=== PATIENT | male | born 1990 | race Caucasian/White ===

== ENCOUNTER 2016-10-10 15:45 | Emergency (ER) | payer SELFPAY ==
[2016-10-10] MEDS ORDERED: Clindamycin CAP* 150 MG PO ONE (16:31)
--- NOTE | 2016-10-10 16:34 | UC ---
[facility] Dental HPI - HPI Summary HPI Summary: 25 yo male with right upper dental pain and swelling x days no f/c - History of Current Complaint Chief Complaint: UCDentalProblem Stated Complaint: ORAL COMPLAINT Time Seen by Provider: 10/10/16 16:20 Hx Obtained From: Patient Onset/Duration: Gradual Onset, Lasting Days Severity: Moderate Pain Intensity: 4 Pain Scale Used: 0-10 Numeric Aggravating: Heat, Cold, Chewing Alleviating: OTC Meds Related History: Swelling - Allergies/Home Medications Allergies/Adverse Reactions: Allergies Allergy/AdvReac Type Severity Reaction Status Date / Time Penicillins Allergy Severe Anaphylatic Verified 10/10/16 16:08 Shock PMH/Surg Hx/FS Hx/Imm Hx Previously Healthy: Yes - Surgical History Surgical History: Yes Surgery Procedure, Year, and Place: Tonsillectomy - Family History Known Family History: Positive: Hypertension, Other - brother with myocarditis/ CHF - Social History Alcohol Use: Occasionally Substance Use Type: None Smoking Status (MU): Never Smoked Tobacco Review of Systems Constitutional: Negative Skin: Negative Eyes: Negative ENT: Dental Pain Respiratory: Negative Cardiovascular: Negative Gastrointestinal: Negative Genitourinary: Negative Motor: Negative Neurovascular: Negative Musculoskeletal: Negative Neurological: Negative Psychological: Negative All Other Systems Reviewed And Are Negative: Yes Physical Exam Triage Information Reviewed: Yes Appearance: Well-Appearing, No Pain Distress, Well-Nourished Vital Signs: Initial Vital Signs Temp 99.0 F 10/10/16 16:05 Pulse 93 10/10/16 16:05 Resp 16 10/10/16 16:05 BP 140/102 10/10/16 16:05 Pulse Ox 99 10/10/16 16:05 Vital Signs Reviewed: Yes Eyes: Positive: Conjunctiva Clear ENT: Positive: Hearing grossly normal. Negative: Nasal congestion, Nasal drainage, Trismus, Muffled/hoarse voice Dental Exam: Other - see image Neck: Positive: Supple, Nontender, No Lymphadenopathy Respiratory: Positive: Lungs clear, Normal breath sounds, No respiratory distress Cardiovascular: Positive: RRR, No Murmur. Negative: Tachycardia, Bradycardia Musculoskeletal: Positive: ROM Intact, No Edema Neurological: Positive: Alert Psychological Exam: Normal Skin Exam: Normal Dental Complaint Course/Dx - Differential Dx/Diagnosis Provider Diagnoses: dental abscess. elevated BP Discharge - Discharge Plan Condition: Stable Disposition: HOME Prescriptions: Clindamycin Cap(NF) [Clindamycin Cap 300 mg Cap(NF)] 300 mg PO QID #28 cap Patient Education Materials: Dental Abscess (ED) Referrals: Sam Corrigan PA [Physician Quantitative Developer] - Additional Instructions: I suspect you elevated BP is due to dental pain Get it rechecked with your provider ibuprofen for pain see dentist to er for new or worsening symptoms recheck in 2-3 days if not improved
[2016-10-10 16:38] VITALS: BP 142/98
== END 2016-10-10 16:42 | disposition home or self-care (01) ==
LOC: UCCORT 15:45
DX: K04.7 Periapical abscess without sinus (principal); R03.0 Elevated blood-pressure reading, without diagnosis of hypertension; Z88.0 Allergy status to penicillin
CPT/HCPCS: 99202; A9270-GY; G0463

== ENCOUNTER 2017-02-15 17:38 | Emergency (ER) | payer OTHER ==
[2017-02-15 18:40] VITALS: BP 138/89
[2017-02-15] MEDS ORDERED: Clindamycin CAP* 150 MG PO ONE ×2 (18:58→18:59)
--- NOTE | 2017-02-15 19:00 | UC ---
[facility] Dental HPI - HPI Summary HPI Summary: swelling right upper gum near first molar--no real pain however the tooth is broken and decayed - History of Current Complaint Chief Complaint: UCDentalProblem Stated Complaint: TOOTH PAIN Time Seen by Provider: 02/15/17 18:54 Hx Obtained From: Patient Onset/Duration: Sudden Onset, Lasting Days - 2, Worse Since - today Severity: Mild Aggravating Factor(s): Nothing Alleviating Factor(s): Nothing Related History: Previous Dental Care on Same Tooth, Swelling - Allergies/Home Medications Allergies/Adverse Reactions: Allergies Allergy/AdvReac Type Severity Reaction Status Date / Time Penicillins Allergy Severe Anaphylatic Verified 02/15/17 18:40 Shock PMH/Surg Hx/FS Hx/Imm Hx Previously Healthy: Yes - Surgical History Surgical History: Yes Surgery Procedure, Year, and Place: Tonsillectomy - Family History Known Family History: Positive: Hypertension, Other - brother with myocarditis/ CHF - Social History Occupation: Employed Full-time Lives: With Family Alcohol Use: Occasionally Substance Use Type: None Smoking Status (MU): Never Smoked Tobacco Review of Systems Constitutional: Negative Skin: Negative Eyes: Negative ENT: Dental Pain - swelling right upper gum Respiratory: Negative Cardiovascular: Negative Gastrointestinal: Negative Genitourinary: Negative Motor: Negative Neurovascular: Negative Musculoskeletal: Negative Neurological: Negative Psychological: Negative Is Patient Immunocompromised?: No All Other Systems Reviewed And Are Negative: Yes Physical Exam Triage Information Reviewed: Yes Appearance: Well-Appearing, No Pain Distress, Well-Nourished Vital Signs: Initial Vital Signs Temp 98.5 F 02/15/17 18:34 Pulse 96 02/15/17 18:34 Resp 18 02/15/17 18:34 BP 138/89 02/15/17 18:34 Pulse Ox 99 02/15/17 18:34 Vital Signs Reviewed: Yes Eye Exam: Normal Eyes: Positive: Conjunctiva Clear ENT Exam: Normal ENT: Positive: Normal ENT inspection, Hearing grossly normal, Pharynx normal, Dental tenderness - mild, Uvula midline. Negative: Nasal congestion, Nasal drainage, Tonsillar swelling, Tonsillar exudate, Trismus, Hoarse voice Dental Exam: Normal Dental: Positive: Gross Decay/Caries @ - right first milar, Abscess @ - right upper gum Neck exam: Normal Neck: Positive: Supple, Nontender, No Lymphadenopathy Respiratory Exam: Normal Respiratory: Positive: Chest non-tender, No respiratory distress, No accessory muscle use Cardiovascular Exam: Normal Cardiovascular: Positive: RRR, Pulses Normal, Brisk Capillary Refill Musculoskeletal Exam: Normal Musculoskeletal: Positive: Strength Intact, ROM Intact, No Edema Neurological Exam: Normal Neurological: Positive: Alert, Muscle Tone Normal Psychological Exam: Normal Skin Exam: Normal Dental Complaint Course/Dx - Course Course Of Treatment: dental abscess, clyndamycin, ibuprofen follow with dentist this week - Differential Dx/Diagnosis Provider Diagnoses: Dental decay and abscess right upper first molar Discharge - Discharge Plan Condition: Stable Disposition: HOME Prescriptions: Clindamycin Cap(NF) [Clindamycin Cap 300 mg Cap(NF)] 300 mg PO Q6H #38 cap Patient Education Materials: Ibuprofen (By mouth), Dental Abscess (ED) Referrals: [facility] [place] [facility] [Outside] Additional Instructions: Follow with dentist this week
== END 2017-02-15 19:35 | disposition home or self-care (01) ==
LOC: UCCORT 17:38
DX: K02.9 Dental caries, unspecified (principal); K04.7 Periapical abscess without sinus
CPT/HCPCS: 99212; A9270-GY; G0463

== ENCOUNTER 2017-12-13 15:45 | Emergency (ER) | payer OTHER ==
[2017-12-13 16:38] VITALS: BP 137/89
--- NOTE | 2017-12-13 16:58 | UC ---
[facility] General HPI - HPI Summary HPI Summary: About 1 week ago, pt had some L knee pain after walking around in deep mud for a prolonged period of time. The knee got better; however, the past 4 days he is having altered sensation to his lateral thigh. he denies any hx low back pain and hip pain. He denies carrying a walllet in his front or back pocket. It improves with sleeping on his side with knees bent. He notes more when seated. No s/s's at this time. - History of Current Complaint Chief Complaint: UCLowerExtremity Stated Complaint: LEFT KNEE PAIN Time Seen by Provider: 12/13/17 16:35 Hx Obtained From: Patient Pain Intensity: 1 - Allergy/Home Medications Allergies/Adverse Reactions: Allergies Allergy/AdvReac Type Severity Reaction Status Date / Time Penicillins Allergy Anaphylatic Verified 12/13/17 16:30 Shock PMH/Surg Hx/FS Hx/Imm Hx Previously Healthy: Yes - Surgical History Surgical History: Yes Surgery Procedure, Year, and Place: Tonsillectomy - Family History Known Family History: Positive: Hypertension, Other - brother with myocarditis/ CHF - Social History Occupation: Employed Full-time Lives: With Family Alcohol Use: Occasionally Substance Use Type: None Smoking Status (MU): Never Smoked Tobacco - Immunization History Vaccination Up to Date: Yes Review of Systems Constitutional: Negative Skin: Negative Eyes: Negative ENT: Negative Respiratory: Negative Cardiovascular: Negative Gastrointestinal: Negative Genitourinary: Negative Motor: Negative Neurovascular: Negative Musculoskeletal: Negative Neurological: Paresthesia - lateral left thigh Psychological: Negative Is Patient Immunocompromised?: No All Other Systems Reviewed And Are Negative: Yes Physical Exam Triage Information Reviewed: Yes Appearance: Well-Appearing Vital Signs: Initial Vital Signs Temp 98.2 F 12/13/17 16:31 Pulse 84 12/13/17 16:31 Resp 20 12/13/17 16:31 BP 137/89 12/13/17 16:31 Pulse Ox 99 12/13/17 16:31 Vital Signs Reviewed: Yes Eyes: Positive: Conjunctiva Clear ENT: Positive: Normal ENT inspection Neck: Positive: Supple, Nontender, No Lymphadenopathy Respiratory: Positive: Lungs clear, Normal breath sounds Cardiovascular: Positive: RRR, No Murmur Abdomen Description: Positive: Nontender, No Organomegaly, Soft, Other: - no inguinal adenopathy. femoral pulses intact. Bowel Sounds: Positive: Present Musculoskeletal: Positive: Other: - Cervical, thoracic and lumbar spine are without gross deformity swelling or discoloration and are nontender to palpation. Range of motion is intact throughout. Both lower extremities bare for exam and neither has any gross deformity swelling or discoloration. Both lower legs are nontender to palpation. Superficial sensation to touch is intact to both lower extremities as well as full v/m function. The left knee has no gross laxity on valgus varus anterior or posterior stressing. Patient is normal steady gait. When patient demonstrates the pattern of altered sensation on his lateral thigh which is not currently present, it fits the lateral femoral cutaneous nerve. Neurological: Positive: Alert Psychological: Positive: Age Appropriate Behavior Skin Exam: Normal Skin: Negative: rashes Course/Dx - Course Course Of Treatment: no concern for infection, fx or disocation. no concern for dvt. exam here is normal but his hx is c/w lateral femoral cutaneous nerve irritation. - Differential Dx - Multi-Symptom Provider Diagnoses: Meralgia-L(lateral femoral cutaneous nerve irritation). Discharge - Sign-Out/Discharge Documenting (check all that apply): Patient Departure All imaging exams completed and their final reports reviewed: No Studies - Discharge Plan Condition: Stable Disposition: HOME Prescriptions: Naproxen [Naprosyn 500 mg tab] 500 mg PO BID 7 Days #14 tablet Patient Education Materials: Meralgia Paresthetica (ED) Referrals: Dylon Wilcox MD [Medical Doctor] - - Billing Disposition and Condition Condition: STABLE Disposition: Home
== END 2017-12-13 17:10 | disposition home or self-care (01) ==
LOC: UCCORT 15:45
DX: G57.12 Meralgia paresthetica, left lower limb (principal); Z88.0 Allergy status to penicillin
CPT/HCPCS: 99212; G0463

== ENCOUNTER 2018-09-09 18:45 | Emergency (ER) | payer OTHER ==
[2018-09-09 19:41] VITALS: BP 142/88
--- NOTE | 2018-09-09 20:28 | UC ---
[facility] General HPI - HPI Summary HPI Summary: head cold last week which is better. now has a sore throat and bilateral ear aches. no fever. - History of Current Complaint Chief Complaint: UCGeneralIllness Stated Complaint: SORE THROAT/ EAR PAIN Time Seen by Provider: 09/09/18 20:15 Hx Obtained From: Patient Onset/Duration: Gradual Onset Timing: Constant Pain Intensity: 8 Aggravating: swallow - Allergy/Home Medications Allergies/Adverse Reactions: Allergies Allergy/AdvReac Type Severity Reaction Status Date / Time Penicillins Allergy Anaphylatic Verified 09/09/18 19:41 Shock Home Medications: Home Medications NK [No Home Medications Reported] 09/09/18 [History Confirmed 09/09/18] PMH/Surg Hx/FS Hx/Imm Hx Previously Healthy: Yes - Surgical History Surgical History: Yes Surgery Procedure, Year, and Place: Tonsillectomy - Family History Known Family History: Positive: Hypertension, Other - brother with myocarditis/ CHF - Social History Occupation: Employed Full-time Alcohol Use: Occasionally Substance Use Type: None Smoking Status (MU): Former Smoker Have You Smoked in the Last Year: Yes When Did the Patient Quit Smoking/Using Tobacco: 08/2018 - Immunization History Vaccination Up to Date: Yes Review of Systems All Other Systems Reviewed And Are Negative: Yes Constitutional: Negative: Fever, Chills ENT: Positive: Sore Throat, Ear Ache. Negative: Sinus Congestion, Sinus Pain/ Tenderness Physical Exam Triage Information Reviewed: Yes Appearance: Well-Appearing Vital Signs: Initial Vital Signs Temp 98.7 F 09/09/18 19:36 Pulse 76 09/09/18 19:36 Resp 16 09/09/18 19:36 BP 142/88 09/09/18 19:36 Pulse Ox 99 09/09/18 19:36 Vital Signs Reviewed: Yes Eyes: Positive: Conjunctiva Clear ENT: Positive: Pharyngeal erythema - slight, TMs normal. Negative: Nasal congestion, Nasal drainage, Trismus, Muffled voice, Hoarse voice, Uvula midline Neck: Positive: Supple, Tenderness @ - peritonsilar nodes, Enlarged Nodes @ - peritonsilar Respiratory: Positive: Lungs clear, Normal breath sounds, No respiratory distress Cardiovascular: Positive: RRR, No Murmur Abdomen Description: Positive: Nontender, No Organomegaly, Soft Musculoskeletal: Positive: ROM Intact Neurological: Positive: Alert Diagnostics - Laboratory Lab Results: rapid strep=negative. Course/Dx - Differential Dx - Multi-Symptom Differential Diagnoses: Other - rapid strep=neg. no concern for peritonsilar abscess. - Diagnoses Provider Diagnosis: Otalgia of both ears, Pharyngitis Discharge - Sign-Out/Discharge Documenting (check all that apply): Patient Departure All imaging exams completed and their final reports reviewed: No Studies - Discharge Plan Condition: Stable Disposition: HOME Patient Education Materials: Earache (ED), Pharyngitis (ED) Referrals: HALLIE Armando [Medical Doctor] - Additional Instructions: FOLLOW UP IF NOT BETTER IN 5-7 DAYS OR SOONER IF WORSE. - Billing Disposition and Condition Condition: STABLE Disposition: Home
== END 2018-09-09 20:30 | disposition home or self-care (01) ==
LOC: UCCORT 18:45
DX: H92.03 Otalgia, bilateral (principal); J02.9 Acute pharyngitis, unspecified; Z88.0 Allergy status to penicillin; Z87.891 Personal history of nicotine dependence
CPT/HCPCS: 87651; 99211; G0463